=== PATIENT | female | born 1990 | race Caucasian/White ===

== ENCOUNTER 2017-11-13 10:41 | Emergency (ER) | payer OTHER ==
--- NOTE | 2017-11-13 11:01 | ER Document Report ---
ED General - General Chief Complaint: Palpitations Stated Complaint: CHEST PAIN Time Seen by Provider: 11/13/17 10:59 Notes: 27-year-old female presents with palpitations and chest tightness onset about an hour ago, onset at the gym. Similar to about 4 past episodes, she has not been checked out for them at all. I was handed her ECG from the triage area and it showed SVT at a rate of [address] depression but no ST elevation. I met her in the triage room we walked her to trauma to for evaluation. She denies it drugs but does have 2 cups of coffee a day and is otherwise quite healthy. TRAVEL OUTSIDE OF THE [place] IN LAST 30 DAYS: No - Related Data Allergies/Adverse Reactions: No Known Allergies Allergy (Verified 11/13/17 10:42) Past Medical History - Social History Smoking Status: Never Smoker Family History: Reviewed & Not Pertinent - Immunizations Immunizations up to date: Yes Hx Diphtheria, Pertussis, Tetanus Vaccination: Yes Review of Systems - Review of Systems Notes: REVIEW OF SYSTEMS GEN: Denies fever, chills, weight loss ENT: Denies sore throat, nasal discharge, ear pain EYES: Denies blurry vision, eye pain, discharge CV: Pain palpitations no edema a RESP: Denies cough, shortness of breath, wheezing GI: Denies abdominal pain, nausea, vomiting, diarrhea MSK: Denies joint pain/swelling, edema, SKIN: Denies rash, skin lesions LYMPH: Denies swollen glands/lymph nodes NEURO: Denies headache, focal weakness or numbness, dizziness PSYCH: Denies depression, suicidal or homicidal ideation PHYSICAL EXAMINATION General: Mild distress anxious Head: Atraumatic, normocephalic ENT: Mouth normal, oropharynx moist, no exudates or tonsillar enlargement Eyes: Conjunctiva normal, pupils equal, lids normal Neck: No JVD, supple, no guarding CVS: Tachycardic, regular Resp: No resp distress, equal and normal breath sounds bilaterally GI: Nondistended, soft, no tenderness to palpation, no rebound or guarding Ext: No deformities, no edema, normal range of motion in upper and lower ext Back: No CVA or midline TTP Skin: No rash, warm Lymphatic: No lymphadeopathy noted Neuro: Awake, alert. Face symmetric. GCS 15. Physical Exam - Vital signs Vitals: Temp Pulse Resp BP Pulse Ox 97.8 F 197 H 20 121/83 100 11/13/17 10:44 11/13/17 10:44 11/13/17 10:44 11/13/17 10:44 11/13/17 10:44 Course - Re-evaluation Re-evalutation: 11/13/17 11:01 27-year-old female presents with about her fourth or fifth episode of rapid heart rate and palpitations. In the ED she is in super ventricular tachycardia. EKG shows some ST depressions which are likely rate related as she is young and healthy and do not likely risk reflect ischemic change. She was gotten on vagal maneuvers. By the time she arrived in the trauma room her heart rate decreased to 90 and her rhythm was sinus. 11/13/17 11:51 Reassessed multiple times between 11 AM and 11:50 AM. Still sinus rhythm without palpitations. Repeat EKG in sinus rhythm does not show evidence of [id number]. Labs are normal. Patient was counseled extensively on vagal therapy as well as the need to follow -up with cardiology and she was referred to a local campaign analyst as well as the electrophysiology campaign analyst in [place]. She was advised to refrain from sympathomimetic activities including excessive caffeine and vigorous exercise until she can be cleared by a campaign analyst. I have discussed with the patient there likely diagnosis, aftercare plan, follow-up plans and my usual and customary return precautions. They verbalized understanding of this. - Vital Signs Vital signs: Temp Pulse Resp BP Pulse Ox 97.8 F 197 H 23 H 121/83 98 11/13/17 10:44 11/13/17 10:44 11/13/17 11:06 11/13/17 10:44 11/13/17 11:06 - Laboratory Result Diagrams: 11/13/17 10:58 11/13/17 10:58 Laboratory results interpreted by me: 11/13/17 10:58 Glucose 125 H Calcium 10.3 H - Diagnostic Test Radiology reviewed: Image reviewed, Reports reviewed Critical Care Note - Critical Care Note Total time excluding time spent on procedures (mins): 31 Comments: The above patient is critically ill. Not including procedures, but including direct re-evaluations, speaking with patient and/or consultants, interpreting results, and documenting, I spent the total amount of minute listed listed above on critical care time Discharge - Discharge Clinical Impression: Supraventricular tachycardia, nonsustained Condition: Good Disposition: HOME, SELF-CARE Instructions: Palpitations (Irregular or Rapid Heartrate) ([facility]) Referrals: LARISSA CONTRERAS MD [EMERITUS] - Follow up as needed LAURA PEREZ MD [NO LOCAL MD] - Follow up as needed
[2017-11-13 11:20] LABS: ABSOLUTE EOSINOPHILS # (AUTO) 0.2 10^3/uL (0.0-0.6); ABSOLUTE MONOCYTES (AUTO) 0.3 10^3/uL (0.1-1.4); ABSOLUTE NEUT (AUTO) 5.3 10^3/uL (1.7-8.2); BASOPHILS % (AUTO) 0.6 % (0-2); EOSINOPHILS % (AUTO) 2.9 % (0-6); HEMATOCRIT 44.9 % (36.0-47.0); LYMPHOCYTES % (AUTO) 25.1 % (13-45); MEAN CORPUSCULAR HEMOGLOBIN 30.2 pg (27.0-33.4); MEAN CORPUSCULAR HGB CONC 33.4 g/dL (32.0-36.0); MEAN CORPUSCULAR VOLUME 91 fl (80-97); MONOCYTES % (AUTO) 4.4 % (3-13); PLATELET COUNT 300 10^3/uL (150-450); RED BLOOD COUNT 4.96 10^6/uL (3.72-5.28); RED CELL DISTRIBUTION WIDTH 13.2 % (11.5-14.0); TOTAL CELLS COUNTED % (AUTO) 100 %; WHITE BLOOD COUNT 7.9 10^3/uL (4.0-10.5)
[2017-11-13 11:25] LABS: ANION GAP 17 (5-19); BLOOD UREA NITROGEN 15 mg/dL (7-20); CALCIUM 10.3 mg/dL (8.4-10.2); CARBON DIOXIDE 22 mmol/L (22-30); CHLORIDE 102 mmol/L (98-107); GLUCOSE 125 mg/dL (75-110); POTASSIUM 4.3 mmol/L (3.6-5.0); SODIUM 140.9 mmol/L (137-145)
--- NOTE | 2017-11-13 11:35 | RADIOLOGY REPORT (SQ) ---
EXAM DESCRIPTION: CHEST SINGLE VIEW COMPLETED DATE/TIME: 11/13/2017 11:25 am REASON FOR STUDY: new arrhythmia COMPARISON: None. EXAM PARAMETERS: NUMBER OF VIEWS: One view. TECHNIQUE: Single frontal radiographic view of the chest acquired. RADIATION DOSE: NA LIMITATIONS: None. FINDINGS: LUNGS AND PLEURA: No opacities, masses or pneumothorax. No pleural effusion. MEDIASTINUM AND HILAR STRUCTURES: No masses. Contour normal. HEART AND VASCULAR STRUCTURES: Heart normal in size. Normal vasculature. BONES: No acute findings. HARDWARE: None in the chest. OTHER: No other significant finding. IMPRESSION: NO ACUTE RADIOGRAPHIC FINDING IN THE CHEST. TECHNICAL DOCUMENTATION: JOB ID: [id number] [email or web address]- All Rights Reserved
[2017-11-13 11:52] VITALS: BP 109/74
--- NOTE | 2017-11-13 12:24 | EKG REPORT ---
SEVERITY:- NORMAL ECG - SINUS RHYTHM : Confirmed by: Gino Lima MD 13-Nov-2017 12:24:06
--- NOTE | 2017-11-13 12:24 | EKG REPORT ---
SEVERITY:- OTHERWISE NORMAL ECG - SINUS RHYTHM BORDERLINE LEFT AXIS DEVIATION : Confirmed by: Gino Lima MD 13-Nov-2017 12:23:24
--- NOTE | 2017-11-13 12:26 | EKG REPORT ---
SEVERITY:- ABNORMAL ECG - SUPRAVENTRICULAR TACHYCARDIA 188. ST DEPRESSION, PROBABLY RATE RELATED : Confirmed by: Gino Lima MD 13-Nov-2017 12:25:31
== END 2017-11-13 11:55 | disposition home or self-care (01) ==
LOC: ER 10:41
DX: I47.1 Supraventricular tachycardia (principal); R00.2 Palpitations; R07.9 Chest pain, unspecified
CPT/HCPCS: 36415; 71045; 80048; 84443; 85025; 93005; 93010; 99291